=== PATIENT | male | born 1980 | race Caucasian/White ===

== ENCOUNTER 2025-10-08 07:42 | Emergency (ER) | payer MEDICAID ==
[~2025-10-08] VITALS: Ht 172.7 cm; Wt 127.3 kg
[2025-10-08 07:50] VITALS: TEMP 98.8
[2025-10-08] MEDS ORDERED: METF-1211 PO (07:51)
[2025-10-08 08:16] LABS: PLATELET COUNT (AUTO) 266 K/uL (150-450); RED BLOOD CELL COUNT(AUTO) 4.96 MIL/uL (4.50-5.90); RED CELL DISTRIBUTION WIDTH 13.1 % (11.5-14.5); WHITE BLOOD COUNT (AUTO) 7.9 K/uL (4.5-11.0)
[2025-10-08 08:26] LABS: CALCIUM, TOTAL 8.4 mg/dL (8.8-10.5); CREATININE 0.88 mg/dL (0.60-1.30); GLOMERULAR FILTR. RATE CALC > 60 mL/min (>60); SODIUM SERUM 134 mmol/L (136-145); UREA NITROGEN, BLOOD 15 mg/dL (7-18)
[2025-10-08 08:27] LABS: GLUCOSE,RANDOM 507 mg/dL (70-110)
[2025-10-08 08:31] LABS: TROPONIN I-HIGH SENSITIVITY 16 ng/L (<76)
[2025-10-08] MEDS: KETOROLAC TROMETHAMINE 30 MG/ML VIAL IVP ONE (08:57)
[2025-10-08] MEDS: POTASSIUM CHLORIDE 20 MEQ ER TABLET PO ONE (08:57)
[2025-10-08] MEDS: AMOX TR/POT CLAV 875 MG/125 MG TABLET PO ONE (08:57)
[2025-10-08] MEDS: INSULIN REGULAR, HUMAN 100 UNITS/ML IVP ONE (08:59)
[2025-10-08] MEDS: SODIUM CHLORIDE 0.9% 1,000 ML IV ONE (09:02)
[2025-10-08 09:18] VITALS: BP 154/66; PULSE 74; RESP 14; O2SAT 96
[2025-10-08] MEDS ORDERED: AMOX-457 PO (10:10)
[2025-10-08] MEDS ORDERED: IBUP-1492 PO (10:10)
[2025-10-08] MEDS ORDERED: ACET-3385 PO (10:10)
[2025-10-08 10:31] LABS: GLUCOMETER DEV NAME(LOC) ERT.7; GLUCOSE,POINT OF CARE 377 MG/DL (70-110)
== END 2025-10-08 10:59 | disposition home or self-care (01) ==
LOC: EMS 07:42
DX: K08.89 Other specified disorders of teeth and supporting structures (principal); I10 Essential (primary) hypertension; E11.65 Type 2 diabetes mellitus with hyperglycemia; F17.210 Nicotine dependence, cigarettes, uncomplicated; Z98.890 Other specified postprocedural states; Z79.899 Other long term (current) drug therapy
CPT/HCPCS: 99284; 96374; 96375; 80048; 82962; 84484; 85025; 36415; 93005; J1885; J1815; J7030